=== PATIENT | female | born 2000 | race African-American/Black ===

== ENCOUNTER 2024-09-02 23:01 | Emergency (ER) | payer OTHER ==
[2024-09-02 23:23] VITALS: BP 140/80; RESP 18; BMI 21.2
[2024-09-03 00:30] LABS: THROAT:GRP A STREP NOT DETECTED (NOTDETECTED)
[2024-09-03] MEDS ORDERED: ACETAMINOPHEN 500 MG TABLET (FP) ONE (01:12)
[2024-09-03] MEDS ORDERED: IBUPROFEN 400 MG TABLET (FP) PO ONE (01:12)
[2024-09-03] MEDS: IBUPROFEN 400 MG TABLET (FP) PO ONE (01:14)
[2024-09-03] MEDS: ACETAMINOPHEN 500 MG TABLET (FP) PO ONE (01:14)
[2024-09-03] MEDS ORDERED: guaiFENesin/D-METHORPHAN HB 10 ML UNIT-DOSE CUPS ONE (01:21)
[2024-09-03] MEDS: guaiFENesin 200 MG/10 ML 10 ML UNIT-DOSE CUPS PO ONE (01:21)
[2024-09-03] MEDS ORDERED: AZITHROMYCIN 500 MG TABLET ONE (01:21)
[2024-09-03] MEDS: AZITHROMYCIN 500 MG TABLET PO ONE (01:23)
[2024-09-03 01:42] VITALS: TEMP 100.1
[2024-09-03 03:05] VITALS: PULSE 105
== END 2024-09-03 03:28 | disposition home or self-care (01) ==
LOC: JER 23:01
DX: J18.9 Pneumonia, unspecified organism (principal); R05.9 Cough, unspecified; R50.9 Fever, unspecified; R00.0 Tachycardia, unspecified; Z20.822 Contact with and (suspected) exposure to COVID-19
CPT/HCPCS: 0241U-QW; 71046-TC-FY; 87651; 99284-25